=== PATIENT | male | born 1975 | race Caucasian/White ===

== ENCOUNTER 2017-08-26 07:07 | Emergency (ER) | payer BC ==
--- NOTE | 2017-08-26 07:17 | UC ---
HPI Febrile Illness - HPI Summary HPI Summary: Pt presents with 3 days body aches, fevers, congestion and non productive cough. PT has been taking Dayquil intermittently with little relief. Pt took motrin Thursday for fever with good effect - none since. pt's son with similar sx. No rash. No nausea, vomiting, diarrhea. decreased appetite. No analgesia today - last Nyquil 3am. Not immunocompromised. Pt's medications reviewed this visit - History of Current Complaint Time Seen by Provider: 08/26/17 07:12 Hx Obtained From: Patient, Family/Emergency Department Coordinator Onset/Duration: Started Days Ago Timing: Constant Initial Severity: Mild Current Severity: Moderate Aggravating Factors: Nothing Associated Signs and Symptoms: Arthralgia, Chills, Cough - Allergy/Home Medications Allergies/Adverse Reactions: Allergies Allergy/AdvReac Type Severity Reaction Status Date / Time Penicillins [PCN] Allergy Severe Hives Verified 08/26/17 07:22 Home Medications: Home Medications [id number] [Nyquil Severe Cold/Flu 5-6.25-10-325 mg/15Ml] 08/26/17 [History] PMH/Surg Hx/FS Hx/Imm Hx Previously Healthy: Yes - Surgical History Surgical History: Yes Surgery Procedure, Year, and Place: vasectomy - Social History Occupation: Employed Full-time Lives: With Family Alcohol Use: Occasionally Substance Use Type: None Smoking Status (MU): Never Smoked Tobacco Review of Systems Constitutional: Fever Skin: Negative Eyes: Negative ENT: Sore Throat, Nasal Discharge Cardiovascular: Negative Gastrointestinal: Negative Genitourinary: Negative Motor: Negative Neurovascular: Negative Musculoskeletal: Arthralgia, Myalgia Neurological: Negative All Other Systems Reviewed And Are Negative: Yes Physical Exam Triage Information Reviewed: Yes Appearance: Well-Appearing, Well-Nourished, Other: - tired appearing, coarse cough Vital Signs Reviewed: Yes Eye Exam: Normal Eyes: Positive: Conjunctiva Clear ENT Exam: Normal ENT: Positive: Pharynx normal, Nasal congestion, Uvula midline, Other - mild fluid b/l TM no erythema turbinates boggy + PND no exudate, erythema Dental Exam: Normal Neck exam: Normal Neck: Positive: Supple, Nontender, No Lymphadenopathy Respiratory Exam: Normal Respiratory: Positive: Chest non-tender, Lungs clear, Normal breath sounds, No respiratory distress, No accessory muscle use Cardiovascular Exam: Normal Cardiovascular: Positive: RRR, No Murmur, Pulses Normal Abdominal Exam: Normal Abdomen Description: Positive: Nontender, No Organomegaly, Soft Bowel Sounds: Positive: Present Musculoskeletal Exam: Normal Neurological Exam: Normal Psychological Exam: Normal Skin Exam: Normal Course/Dx - Course Course Of Treatment: Pt with body aches, cough, congestion x 3 days. PT with fevers. Pt appears fatigue with fever. Will give APAP. influenza neg. hydrate. secretion precaution. flonase. work note - Diagnoses Clinic Provider Diagnoses: viral syndrome Discharge - Discharge Plan Condition: Stable Disposition: HOME Prescriptions: Fluticasone NASAL SPRAY 50MCG* [Flonase NASAL SPRAY 50MCG*] 1 spray BOTH NARES DAILY #1 btl Patient Education Materials: Viral Syndrome (ED) Forms: *Work Release Referrals: Abhay Monet MD [Primary Care Provider] - Additional Instructions: - Stay well hydrated. Drink plenty of non-alcoholic, non-caffinated beverages. -These infections are spread by secretions - do NOT share eating or drinking utensils - clean items you share with other people such as cell phones, computer mouse, TV remote, computer tablets, etc. Once you start to feel better , change your toothbrush and your pillowcase. - Alternate ibuprofen (Advil, Motrin) 600mg and Tylenol (975mg-1000mg) every 3 hours for pain or fever. Take with food. Do NOT take for more than 4-5 days. -get plenty of restful sleep. -use nasal spray as prescribed - Call your doctor to schedule a follow-up appointment. Call your doctor or return with questions or concerns
[2017-08-26 07:25] VITALS: BP 127/85
[2017-08-26] MEDS ORDERED: Acetaminophen TAB* 325 MG PO ONE (07:48)
== END 2017-08-26 08:01 | disposition home or self-care (01) ==
LOC: UCEAST 07:07
DX: B34.9 Viral infection, unspecified (principal)
CPT/HCPCS: 87502; 99212; A9270-GY; G0463